=== PATIENT | male | born 1960 | race African-American/Black ===

== ENCOUNTER 2019-06-01 09:10 | Emergency (ER) | payer BC ==
[~2019-06-01] VITALS: Ht 180.3 cm; Wt 103.9 kg
[2019-06-01 09:25] VITALS: BP 147/95
[2019-06-01] MEDS ORDERED: METHOCARBAMOL 500 MG TAB PO ONE (11:00)
[2019-06-01] MEDS ORDERED: methylPREDNISolone SOD SUCC 125 MG/2 ML VL IM ONE (11:00)
[2019-06-01] MEDS ORDERED: KETOROLAC TROMETH 60MG/2ML VIAL IM ONE (11:00)
== END 2019-06-01 11:36 | disposition home or self-care (01) ==
LOC: ER 09:10
DX: M54.16 Radiculopathy, lumbar region (principal); I10 Essential (primary) hypertension; Z88.8 Allergy status to other drugs, medicaments and biological substances
CPT/HCPCS: 96372; 99284; J1885; J2930

== ENCOUNTER 2025-03-16 04:08 | Emergency (ER) | payer BC ==
[~2025-03-16] VITALS: Ht 188 cm; Wt 86.0 kg
[2025-03-16 04:08] VITALS: BP 0/0; PULSE 0; RESP 0; O2SAT 0
[2025-03-16 04:09] VITALS: TEMP 96
[2025-03-16] MEDS ORDERED: EPINEPHrine HCL 1 MG/10 ML SYRG IV ONE (04:09)
[2025-03-16] MEDS ORDERED: SODIUM BICARB 8.4% 50Meq/50ml SYR INJ IV ONE (04:09)
[2025-03-16] MEDS ORDERED: EPINEPHrine HCL 1 MG/10 ML SYRG ONE (04:25)
--- NOTE | 2025-03-16 04:39 | ED.PDOC ---
CPR-HPI HPI Comments This is a 64-year-old male who comes in with chief complaint of status post full arrest. The patient was at the gym at 2:10 a.m. this morning. The call came out at approximately 3:30 a.m. this morning that the patient was unresponsive and on the ground. Paramedics arrived, the patient was in asystole. The patient received a total of four epinephrine prior to arrival. The patient also received sodium bicarbonate and calcium chloride. An IO was placed to the left tib-fib area and an 18 gauge catheter was placed to the right arm. Patient was intubated with a 7.0 endotracheal tube. Chief Complaint: CPR Time Seen by MD: 04:33 Primary Care Provider: SONJA Abdullahi Notes: Nurses Notes, Bookstore Clerk Notes, Medications, Allergies (Allergies listed above) Allergies: Coded Allergies: Lisinopril (Verified Allergy, Unknown, 06/01/19) Uncoded Allergies: MORPHINE (Allergy, Unknown, 06/01/19) TYLENOL WITH CODEINE (Allergy, Unknown, 06/01/19) Information Source: Emergency Med Personnel Mode of Arrival: EMS Timing: Minutes Duration: Down time prior EMS: (Unknown), Total time prior hopital: (Unknown) Onset: With exertion Available Hx: Unknown Inital rhythm: Asystole Treatment: CPR, Intubation, IV, Epinephrine Response: No response Associated signs and symptoms: Unknown Past Medical History PAST MEDICAL HISTORY: Gout, HTN Surgical History: Denies all surgeries Family History Family History: Unknown Social History Smoker: Non-Smoker Alcohol: Denies ETOH Use Drugs: Denies Drug Use Lives In: Home Unable to Obtain due to: Altered Mental Status, Intubated Physical Exam General Appearance: Severe Distress HEENT: Other (Bizarre fixed and mid-range. The patient has a endotracheal tube in his mouth) Neck: Supple Respiratory: Decreased Breath Sounds, Other (The patient is being mechanically ventilated) Cardiovascular: Other (Asystole) Breast Exam: Deferred Gastrointestinal: No Pulsatile Mass Genitalia: Deferred Pelvic: Deferred Rectal: Deferred Extremities: No pedal edema, Other (Pulseless) Neurologic: Other (GCS of three) Cerebellar Function: Unable to Test Reflexes: None Skin: Normal Color Lymphatic: NOT DONE Was a procedure done? Was a procedure done?: No Differential Dx CPR Differential Diagnosis: Cardiopulmonary arrest X-Ray, Labs, Meds, VS We attempted to contact the family on the phone. Despite our efforts, the patient has We did get in contact with the patient's son as well as mother They will be coming to the facility at this time. Time of 1ST Reevaluation: 04:38 Reevaluation 1ST: Unchanged Patient Education/Counseling: Pt Unresponsive Family Education/Counseling: No Family Present Departure 1 Departure Time of Disposition: 04:38 Impression: Primary Impression: Cardiopulmonary arrest Disposition: 20 Condition: Other (The patient has ) Critical Care Note Critical Care Time?: No Heart Score Heart Score: Heart Score Response (Comments) Value History N/A 0 EKG N/A 0 Age N/A 0 Risk Factors N/A 0 Troponin N/A 0 Total 0 Stability Stability form required: No STEVEN BARNEY MD Mar 16, 2025 04:39
--- NOTE | 2025-03-16 04:40 | RESUS ---
CODE BLUE ASSESSSMENT History of Events History of Events: This is a 64-year-old male who comes in with chief complaint of status post full arrest. The patient was at the gym at 2:10 a.m. this morning. The call came out at approximately 3:30 a.m. this morning that the patient was unresponsive and on the ground. Paramedics arrived, the patient was in asystole. The patient received a total of four epinephrine prior to arrival. The patient also received sodium bicarbonate and calcium chloride. An IO was placed to the left tib-fib area and an 18 gauge catheter was placed to the right arm. Patient was intubated with a 7.0 endotracheal tube. Initial Information Date: Mar 16, 2025 Time: 04:09 Location of Arrest: ER Arrest Witnessed: No CPR started by whom: Bystander Last seen well: 0210 Pre-Hospital Care: ACLS Type of arrest: Cardiac, Respiratory, Trauma, Adult, Unwitnessed Spontaneous Respirations: Yes Pulse Present: Yes Monitoring: ECG, Pulse Oximetry, Telemetry Crash Cart Opened and Supplies: No Airway Ventilation Breathing at Onset: Assisted O2 Sat by Pulse Oximetry: 86 Oxygen Delivery Method: Ambu-Bag Time of first Assisted Ventila: 04:09 Artificial Ventilation: Bag/Endo tube Intubation Time: 04:16 Intubation Size: 8.0 cuffed Intubated by: Dr. Cabrera Intubation Attempts: 1 Intubated orally: Yes Tube secured at: 28 Cricoid pressure done: Yes CO2 indicator used: Yes Confirmation: Auscultation Suctioning (Oral/Tracheal): Yes Comments: Pt arrived intubated, reintubated for placement. Circulation Circulation #1: Time: 04:09 Circulation Comment: arrival via auto pulse Circulation #2: Time: 04:12 Circulation Comment: asystole Circulation #3: Time: 04:14 Circulation Comment: asystole Circulation #4: Time: 04:16 Circulation Comment: asystole Circulation #5: Time: 04:18 Circulation Comment: asystole Circulation #6: Time: 04:20 Circulation Comment: asystole Circulation #7: Time: 04:22 Circulation Comment: asystole Circulation #8: Time: 04:24 Circulation Comment: asystole Circulation #9: Time: 04:26 Circulation Comment: asystole Circulation #10: Time: 04:28 Circulation Comment: asystole Circulation #11: Time: 04:30 Circulation Comment: MEDINA Procedure - IV Procedure - IV : IV Side: Right IV Location: Antecubital IV Catheter Type: Saline Lock IV Placed: In Hospital IV Gauge: 20 IV Line Care: Saline Flush Procedure - Intraosseous Site of Intraosseous: Tibia gina-medial Intraosseous inserted by: EMS Comment: Left leg Medications & Response Medications and Responses #1: Medication Time: 04:10 ADULT Medications Given ADULT: Epinephrine 1 mg Route of Administration: IV Heart Rate: 0 EKG Rhythm: Asystole Medications and Responses #2: Medication Time: 04:13 ADULT Medications Given ADULT: Epinephrine 1 mg, Sodium Bacarbinate 50 meq Route of Administration: IV EKG Rhythm: Asystole Medications and Responses #3: Medication Time: 04:16 ADULT Medications Given ADULT: Epinephrine 1 mg Route of Administration: IV EKG Rhythm: Asystole Medications and Responses #4: Medication Time: 04:19 ADULT Medications Given ADULT: Epinephrine 1 mg Route of Administration: IV EKG Rhythm: Asystole Medications and Responses #5: Medication Time: 04:22 ADULT Medications Given ADULT: Epinephrine 1 mg Route of Administration: IV EKG Rhythm: Asystole Medications and Responses #6: Medication Time: 04:25 ADULT Medications Given ADULT: Epinephrine 1 mg Route of Administration: IV EKG Rhythm: Asystole Medications and Responses #7: Medication Time: 04:28 ADULT Medications Given ADULT: Epinephrine 1 mg Route of Administration: IV EKG Rhythm: Asystole Nurses Notes Nava Coma Scale Eye Opening: None (1) [place] Coma Scale Verbal: None (1) Nava Coma Scale Motor: None (1) [place] Total: 5 Bedside Blood Glucose: 99 EKG Rhythm: Asystole Nurses Notes - Comment: Rectal temp. 96.0 Time Code Ended Time Code Ended: 04:30 Post Arrest Status: Outcome of code: Unsuccessful Patient pronounced by: Dr. Cabrera Time patient pronounced: 04:30 Family notified: Yes Attending called: Yes Code Team Present: January Ferraro RT, Ciera RT, Francisco Javier RN, Celio home child care provider, Yvan RN, Don EMT, Sumanth EMT, Amanda RN HS Post Resuscitation Neurologica Pupil Size: 5 Comment: Dilated, unreactive, fixed MALANTICAMANDA Mar 16, 2025 04:40
== END 2025-03-16 04:30 ==
LOC: EDBD 04:08 → ER 04:08
DX: I46.9 Cardiac arrest, cause unspecified (principal); I10 Essential (primary) hypertension; M10.9 Gout, unspecified; Z88.8 Allergy status to other drugs, medicaments and biological substances; Z88.6 Allergy status to analgesic agent; Z88.5 Allergy status to narcotic agent
CPT/HCPCS: 31500; 92950; 99285; J0169